=== PATIENT | female | born 1970 | race Caucasian/White ===

== ENCOUNTER 2020-07-16 21:30 | Emergency (ER) | payer OTHER ==
[~2020-07-16 21:30] MED LIST: BENTYL 10MG CAP10 MG PO; BETAPACE120 MG PO; CATAPRES0.3 MG PO; COREG 25MG TAB25 MG PO; ELAVIL 25 MG TA25 MG PO; FUROSEMIDE40 MG PO; K-DUR TAB 20 M20 MEQ PO; LASIX20 MG PO; LIORESAL TAB 1010 MG PO; NEURONTIN 400400 MG PO; NORCO 7.5-3251 EACH PO; OMNICEF 300 MG300 MG PO; PERCOCET 5/325 T1 EA PO; PHENERGAN 12.12.5 M1 PO; RESTORIL15 MG PO; TEGRETOL 200 M200 MG PO; VALTREX1000 MG PO; Voltaren Gel 1 % TOP; ZOFRAN4 MG PO
[2020-07-17] MEDS ORDERED: TEGRETOL200 MG PO (01:55)
[2020-12-25] MEDS ORDERED: LASIX40 MG PO (09:08)
== END 2020-07-17 02:22 | disposition home or self-care (01) ==
LOC: ER1 21:30
DX: G50.0 Trigeminal neuralgia (principal); I10 Essential (primary) hypertension; E11.9 Type 2 diabetes mellitus without complications; Z95.0 Presence of cardiac pacemaker; Z88.5 Allergy status to narcotic agent
CPT/HCPCS: 99283

== ENCOUNTER 2020-09-09 19:09 | Emergency (ER) | payer MEDICARE ==
[~2020-09-09 19:09] MED LIST changes: +TEGRETOL200 MG PO
[2020-09-09 20:38] LABS: HEMOGLOBIN 8.9 gm/dl (12.3-15.3); RED BLOOD COUNT 4.21 M/UL (4.00-5.10); WHITE BLOOD COUNT 9.7 K/UL (4.5-11.0)
[2020-09-09 21:12] LABS: BUN/CREATININE RATIO 10 (0-10)
[2020-09-09] MEDS ORDERED: Magic Mouthwash (21:25)
[2020-12-25] MEDS ORDERED: LASIX40 MG PO (09:08)
== END 2020-09-09 21:52 | disposition home or self-care (01) ==
LOC: ER1 19:09
PROVIDERS: Family Medicine
DX: J02.9 Acute pharyngitis, unspecified (principal); D50.8 Other iron deficiency anemias; I11.0 Hypertensive heart disease with heart failure; I50.9 Heart failure, unspecified; Z20.822 Contact with and (suspected) exposure to COVID-19; Z90.49 Acquired absence of other specified parts of digestive tract; Z95.0 Presence of cardiac pacemaker
CPT/HCPCS: 0240U; 36415; 80053; 81001; 82550; 82553; 83874; 84484; 85025; 87081; 87880; 99283

== ENCOUNTER 2020-12-24 12:32 | Observation (INO) | payer MEDICARE, OTHER ==
[~2020-12-24] VITALS: Ht 165.1 cm; Wt 163.1 kg
[~2020-12-24 12:32] MED LIST changes: +Magic Mouthwash
[2020-12-24 14:33] LABS: HEMOGLOBIN 7.1 gm/dl (12.3-15.3); RED BLOOD COUNT 3.27 M/UL (4.00-5.10); WHITE BLOOD COUNT 8.1 K/UL (4.5-11.0)
[2020-12-24 15:56] LABS: BUN/CREATININE RATIO 9 (0-10)
[2020-12-24] MEDS ORDERED: ZYRTEC10 MG PO (16:21)
[2020-12-24] MEDS ORDERED: CLONIDINE HCL0.3 MG PO (16:21)
[2020-12-24] MEDS ORDERED: SYNTHROID200 MCG PO (16:22)
[2020-12-24] MEDS ORDERED: PEPCID20 MG PO (16:22)
[2020-12-24] MEDS ORDERED: AMITRIPTYLINE H25 MG PO (16:22)
[2020-12-24] MEDS ORDERED: IRON325 M1 PO (16:24)
[2020-12-24] MEDS ORDERED: PROZAC40 MG PO (16:24)
[2020-12-24] MEDS ORDERED: COMBIVENT RESPIM4 GM INH (16:24)
[2020-12-24] MEDS ORDERED: SPIRIVA RESPIMAT4 GM INH (16:24)
[2020-12-24] MEDS ORDERED: FLONASE 0.05% N16 GM (16:25)
[2020-12-24] MEDS ORDERED: PREDNISONE5 MG PO (16:25)
[2020-12-24] MEDS ORDERED: SINGULAIR10 MG PO (16:25)
[2020-12-24] MEDS ORDERED: WIXELA 500-501 EACH INH (16:27)
[2020-12-24] MEDS ORDERED: HYDROXYZINE HCL50 MG PO ×2 (16:48)
[2020-12-24] MEDS ORDERED: LOPRESSOR100 MG PO (16:49)
[2020-12-24] MEDS ORDERED: DRISDOL1250 MCG PO (16:49)
[2020-12-24] MEDS ORDERED: ALDACTONE 25MG25 MG PO (16:50)
[2020-12-24] MEDS ORDERED: METFORMIN HCL500 MG PO (20:08)
[2020-12-25 03:05] LABS: HEMOGLOBIN 8.2 gm/dl (12.3-15.3); WHITE BLOOD COUNT 7.2 K/UL (4.5-11.0)
[2020-12-25 03:07] LABS: RED BLOOD COUNT 3.64 M/UL (4.00-5.10)
[2020-12-25 03:56] LABS: BUN/CREATININE RATIO 9 (0-10)
[2020-12-25] MEDS ORDERED: LASIX40 MG PO (09:08)
== END 2020-12-25 16:13 | disposition home or self-care (01) ==
LOC: ER1 12:32 → CDU 16:13 → M/S 16:13
PROVIDERS: Emergency Medicine; Physician Assistant Medical; ADMIT Internal Medicine
DX: I11.0 Hypertensive heart disease with heart failure (principal); I50.33 Acute on chronic diastolic (congestive) heart failure; D50.9 Iron deficiency anemia, unspecified; I25.10 Atherosclerotic heart disease of native coronary artery without angina pectoris; I25.5 Ischemic cardiomyopathy; I48.92 Unspecified atrial flutter; E11.9 Type 2 diabetes mellitus without complications; E78.5 Hyperlipidemia, unspecified; E03.9 Hypothyroidism, unspecified; G47.33 Obstructive sleep apnea (adult) (pediatric); G43.909 Migraine, unspecified, not intractable, without status migrainosus; F41.9 Anxiety disorder, unspecified; G89.4 Chronic pain syndrome; E66.01 Morbid (severe) obesity due to excess calories; Z68.44 Body mass index [BMI] 60.0-69.9, adult; Z20.822 Contact with and (suspected) exposure to COVID-19; Z79.84 Long term (current) use of oral hypoglycemic drugs; Z79.82 Long term (current) use of aspirin; Z79.899 Other long term (current) drug therapy; Z88.5 Allergy status to narcotic agent; Z88.2 Allergy status to sulfonamides; Z88.1 Allergy status to other antibiotic agents; Z88.8 Allergy status to other drugs, medicaments and biological substances; Z95.0 Presence of cardiac pacemaker; Z87.19 Personal history of other diseases of the digestive system
CPT/HCPCS: ECHO; 36415; 36430; 71045; 80048; 80053; 82550; 82553; 82607; 82728; 82746; 82962; 83036; 83540; 83550; 83735; 83874; 83880; 84439; 84443; 84484; 85025; 85027; 85610; 86850; 86900; 86901; 86920; 93005; 93306; 93970; 96374; 96375; 96376; 99285; G0378; J1756; J1940; J7050; P9016; U0002

== ENCOUNTER 2021-01-09 19:07 | Emergency (ER) | payer MEDICARE ==
[~2021-01-09 19:07] MED LIST changes: +ALDACTONE 25MG25 MG PO; +AMITRIPTYLINE H25 MG PO; +CLONIDINE HCL0.3 MG PO; +COMBIVENT RESPIM4 GM INH; +DRISDOL1250 MCG PO; +FLONASE 0.05% N16 GM; +HYDROXYZINE HCL50 MG PO; +IRON325 M1 PO; +LASIX40 MG PO; +LOPRESSOR100 MG PO; +METFORMIN HCL500 MG PO; +PEPCID20 MG PO; +PREDNISONE5 MG PO; +PROZAC40 MG PO; +SINGULAIR10 MG PO; +SPIRIVA RESPIMAT4 GM INH; +SYNTHROID200 MCG PO; +WIXELA 500-501 EACH INH; +ZYRTEC10 MG PO
[2021-01-09 20:07] LABS: HEMOGLOBIN 9.8 gm/dl (12.3-15.3); RED BLOOD COUNT 4.23 M/UL (4.00-5.10); WHITE BLOOD COUNT 10.8 K/UL (4.5-11.0)
[2021-01-09] MEDS ORDERED: PERCOCET 5-3251 EACH PO (23:13)
== END 2021-01-09 20:09 | disposition home or self-care (01) ==
LOC: ER1 19:07
PROVIDERS: Physician Assistant Medical
DX: S22.31XA Fracture of one rib, right side, initial encounter for closed fracture (principal); M25.511 Pain in right shoulder; E11.9 Type 2 diabetes mellitus without complications; I10 Essential (primary) hypertension; E03.9 Hypothyroidism, unspecified; Z88.5 Allergy status to narcotic agent; Z88.8 Allergy status to other drugs, medicaments and biological substances; Z95.0 Presence of cardiac pacemaker; W22.8XXA Striking against or struck by other objects, initial encounter; Y92.009 Unspecified place in unspecified non-institutional (private) residence as the place of occurrence of the external cause
CPT/HCPCS: 71111; 72040; 73030; 80053; 82550; 82553; 83874; 84484; 85025; 85379; 85610; 93005; 96374; 99285; Q9967

== ENCOUNTER 2021-04-14 16:18 | Emergency (ER) | payer MEDICARE ==
[~2021-04-14 16:18] MED LIST changes: +PERCOCET 5-3251 EACH PO
[2021-04-14 18:35] LABS: HEMOGLOBIN 11.1 gm/dl (12.3-15.3); RED BLOOD COUNT 4.44 M/UL (4.00-5.10); WHITE BLOOD COUNT 9.7 K/UL (4.5-11.0)
[2021-04-14 18:48] LABS: BUN/CREATININE RATIO 12 (0-10)
[2021-04-14] MEDS ORDERED: OMNICEF 300 MG300 MG PO (20:52)
== END 2021-04-14 21:05 | disposition home or self-care (01) ==
LOC: ER1 16:18
PROVIDERS: Emergency Medicine
DX: N39.0 Urinary tract infection, site not specified (principal); E11.9 Type 2 diabetes mellitus without complications; I10 Essential (primary) hypertension; Z90.49 Acquired absence of other specified parts of digestive tract
CPT/HCPCS: 80053; 81001; 82550; 82553; 83690; 83874; 84484; 85025; 87086; 96374; 96375; 99284; J1170; J2405; J7030; Q9967

== ENCOUNTER 2021-11-24 18:33 | Emergency (ER) | payer MEDICARE ==
[~2021-11-24 18:33] MED LIST changes: +ASPIRIN EC81 MG PO; +ATIVAN 1MG TABLE1 MG PO; +CYANOCOBAL1000 MCG/1 INJ; +HYGROTON TAB 2525 MG PO; +LISINOPRIL40 MG PO; +NITROGLYCERIN0.4 MG SL; +PAROXETINE HCL20 MG PO; +PROMETHAZINE HC25 M1 PO
[2021-11-24 19:29] LABS: HEMOGLOBIN 10.1 gm/dl (12.3-15.3); RED BLOOD COUNT 3.68 M/UL (4.00-5.10); WHITE BLOOD COUNT 8.2 K/UL (4.5-11.0)
[2021-11-24 19:53] LABS: BUN/CREATININE RATIO 17 (0-10)
== END 2021-11-24 19:47 | disposition left against medical advice (07) ==
LOC: ER1 18:33
PROVIDERS: Emergency Medicine
DX: M54.9 Dorsalgia, unspecified (principal); R55 Syncope and collapse; I10 Essential (primary) hypertension; E11.9 Type 2 diabetes mellitus without complications; J44.9 Chronic obstructive pulmonary disease, unspecified; W19.XXXA Unspecified fall, initial encounter
CPT/HCPCS: 71045; 80053; 82550; 82553; 84484; 85025; 93005; 99281

== ENCOUNTER 2021-12-21 11:58 | Inpatient (IN) | payer MEDICARE ==
[~2021-12-21] VITALS: Ht 165.1 cm; Wt 150.1 kg
[2021-12-21 13:33] LABS: HEMOGLOBIN 8.7 gm/dl (12.3-15.3); RED BLOOD COUNT 3.09 M/UL (4.00-5.10); WHITE BLOOD COUNT 6.8 K/UL (4.5-11.0)
[2021-12-21 13:57] LABS: BUN/CREATININE RATIO 8 (0-10)
[2021-12-22 05:08] LABS: HEMOGLOBIN 7.6 gm/dl (12.3-15.3); WHITE BLOOD COUNT 6.1 K/UL (4.5-11.0)
[2021-12-22 05:15] LABS: RED BLOOD COUNT 2.69 M/UL (4.00-5.10)
[2021-12-22 09:56] LABS: HEMOGLOBIN 8.2 gm/dl (12.3-15.3)
[2021-12-22] MEDS ORDERED: PAROXETINE HCL20 MG PO (10:25)
[2021-12-22] MEDS ORDERED: ONDANSETRON ODT4 MG PO (10:26)
[2021-12-22] MEDS ORDERED: LORAZEPAM2 MG PO (10:28)
[2021-12-22] MEDS ORDERED: FAMOTIDINE40 MG PO (10:28)
[2021-12-22] MEDS ORDERED: TIZANIDINE HCL4 MG PO (10:29)
[2021-12-22] MEDS ORDERED: CLONIDINE HCL0.3 MG PO (10:30)
[2021-12-22] MEDS ORDERED: HYDROXYZINE HCL50 MG PO (10:30)
[2021-12-23 05:25] LABS: HEMOGLOBIN 7.7 gm/dl (12.3-15.3); RED BLOOD COUNT 2.74 M/UL (4.00-5.10)
[2021-12-24 07:19] LABS: HEMOGLOBIN 8.3 gm/dl (12.3-15.3); WHITE BLOOD COUNT 4.5 K/UL (4.5-11.0)
[2021-12-24] MEDS ORDERED: KEPPRA1000 MG PO (17:09)
== END 2021-12-24 19:45 | disposition home or self-care (01) | DRG 101 ==
LOC: ER1 11:58 → CDU 18:49 → CCU 18:49
PROVIDERS: Emergency Medicine; Internal Medicine; ADMIT Internal Medicine Infectious Disease
PROC: B24BZZZ Ultrasonography of Heart with Aorta (ICD-10-PCS; 2021-12-22)
PROC: 4A00X4Z Measurement of Central Nervous Electrical Activity, External Approach (ICD-10-PCS; principal; 2021-12-23)
DX: G40.409 Other generalized epilepsy and epileptic syndromes, not intractable, without status epilepticus (principal); E66.2 Morbid (severe) obesity with alveolar hypoventilation; Z68.43 Body mass index [BMI] 50.0-59.9, adult; I50.30 Unspecified diastolic (congestive) heart failure; Z20.822 Contact with and (suspected) exposure to COVID-19; R55 Syncope and collapse; R00.0 Tachycardia, unspecified; F41.9 Anxiety disorder, unspecified; E86.0 Dehydration; D64.9 Anemia, unspecified; F32.A Depression, unspecified; G43.909 Migraine, unspecified, not intractable, without status migrainosus; I11.0 Hypertensive heart disease with heart failure; G89.4 Chronic pain syndrome; E03.9 Hypothyroidism, unspecified; S30.0XXA Contusion of lower back and pelvis, initial encounter; S00.83XA Contusion of other part of head, initial encounter; W19.XXXA Unspecified fall, initial encounter; I48.91 Unspecified atrial fibrillation; Z90.49 Acquired absence of other specified parts of digestive tract; Z95.0 Presence of cardiac pacemaker; Z82.49 Family history of ischemic heart disease and other diseases of the circulatory system; Z79.82 Long term (current) use of aspirin; Z88.6 Allergy status to analgesic agent; Z88.8 Allergy status to other drugs, medicaments and biological substances; Z79.899 Other long term (current) drug therapy
CPT/HCPCS: ECHO; 36415; 70450; 70486; 71045; 80048; 80053; 81001; 82272; 82550; 82553; 82607; 82728; 82746; 82962; 83540; 83550; 83605; 83690; 83735; 83880; 84439; 84443; 84484; 85014; 85018; 85025; 85379; 85610; 85730; 86850; 86900; 86901; 93005; 93306; 93970; 94660; 94760; 95816; 96372; 96374; 96375; 97116-GP-CQ; 97162; 99285; C9113; J0360; J0696; J1170; J1650; J1953; J2405; J2550; J2765; J3420; J3475; J7040; Q9967; U0002

== ENCOUNTER 2022-02-07 15:05 | Emergency (ER) | payer MEDICARE ==
[~2022-02-07 15:05] MED LIST changes: +FAMOTIDINE40 MG PO; +KEPPRA1000 MG PO; +LORAZEPAM2 MG PO; +ONDANSETRON ODT4 MG PO; +TIZANIDINE HCL4 MG PO
[2022-02-07] MEDS ORDERED: IBUPROFEN800 MG PO (20:09)
== END 2022-02-07 20:40 | disposition home or self-care (01) ==
LOC: ER1 15:05
DX: S20.212A Contusion of left front wall of thorax, initial encounter (principal); Z88.8 Allergy status to other drugs, medicaments and biological substances; W06.XXXA Fall from bed, initial encounter
CPT/HCPCS: 71045; 71100; 96374; 99283; J2405

== ENCOUNTER 2022-02-10 23:12 | Emergency (ER) | payer MEDICARE ==
[~2022-02-10 23:12] MED LIST changes: +IBUPROFEN800 MG PO
[2022-02-12] MEDS ORDERED: ZOFRAN 4 MG TAB4 MG PO ×2 (19:57→20:21)
[2022-02-12] MEDS ORDERED: PROTONIX 40 MG40 M1 PO ×2 (19:57→20:21)
== END 2022-02-11 01:15 | disposition left against medical advice (07) ==
LOC: ER1 23:12
DX: Z53.21 Procedure and treatment not carried out due to patient leaving prior to being seen by health care provider (principal)

== ENCOUNTER 2022-02-12 15:11 | Emergency (ER) | payer MEDICARE ==
[2022-02-12 17:21] LABS: HEMOGLOBIN 10.2 gm/dl (12.3-15.3); RED BLOOD COUNT 3.96 M/UL (4.00-5.10); WHITE BLOOD COUNT 8.6 K/UL (4.5-11.0)
[2022-02-12] MEDS ORDERED: PROTONIX 40 MG40 M1 PO ×2 (19:57→20:21)
[2022-02-12] MEDS ORDERED: ZOFRAN 4 MG TAB4 MG PO ×2 (19:57→20:21)
== END 2022-02-12 20:40 | disposition home or self-care (01) ==
LOC: ER1 15:11
PROVIDERS: Preventive Medicine Occupational Medicine
DX: K29.70 Gastritis, unspecified, without bleeding (principal)
CPT/HCPCS: 80053; 85025; 86140; 96374; 96375; 99284; C9113; J2405; Q9967

== ENCOUNTER 2022-02-21 21:28 | Inpatient (IN) | payer MEDICARE ==
[~2022-02-21] VITALS: Ht 165.1 cm; Wt 147.4 kg
[~2022-02-21 21:28] MED LIST changes: +PROTONIX 40 MG40 M1 PO; +SYNTHROID150 MCG PO; -SYNTHROID200 MCG PO; +ZOFRAN 4 MG TAB4 MG PO
[2022-02-21 22:56] LABS: RED BLOOD COUNT 3.91 M/UL (4.00-5.10); WHITE BLOOD COUNT 6.7 K/UL (4.5-11.0)
[2022-02-22] MEDS ORDERED: PROTONIX40 MG PO (13:37)
[2022-02-22] MEDS ORDERED: ONDANSETRON HCL4 MG PO (13:37)
[2022-02-22] MEDS ORDERED: MIRTAZAPINE15 MG PO (13:38)
[2022-02-22] MEDS ORDERED: LEVETIRACETAM1000 MG PO (13:39)
[2022-02-23 04:42] LABS: HEMOGLOBIN 8.5 gm/dl (12.3-15.3); WHITE BLOOD COUNT 5.3 K/UL (4.5-11.0)
[2022-02-23 04:43] LABS: RED BLOOD COUNT 3.32 M/UL (4.00-5.10)
[2022-02-24 04:46] LABS: HEMOGLOBIN 7.7 gm/dl (12.3-15.3); RED BLOOD COUNT 2.97 M/UL (4.00-5.10); WHITE BLOOD COUNT 4.1 K/UL (4.5-11.0)
[2022-02-25 02:32] LABS: HEMOGLOBIN 7.8 gm/dl (12.3-15.3); RED BLOOD COUNT 3.02 M/UL (4.00-5.10); WHITE BLOOD COUNT 5.1 K/UL (4.5-11.0)
[2022-02-25] MEDS ORDERED: CYANOCOBAL1000 MCG/1 INJ (12:32)
[2022-02-25] MEDS ORDERED: THERAGRAN M TAB1 EA PO (12:32)
[2022-02-25] MEDS ORDERED: XANAX0.5 MG PO (12:32)
[2022-02-25] MEDS ORDERED: CYANOCOBAL1000 MCG/1 SC (12:32)
== END 2022-02-25 14:58 | disposition home or self-care (01) | DRG 682 ==
LOC: ER1 21:28 → CDU 02-22 05:04 → PROG CARE 02-22 05:04
PROVIDERS: Family Medicine; Internal Medicine; Physician Assistant; ADMIT Internal Medicine
DX: N17.9 Acute kidney failure, unspecified (principal); R57.1 Hypovolemic shock; E87.2 Acidosis; F10.139 Alcohol abuse with withdrawal, unspecified; Z20.822 Contact with and (suspected) exposure to COVID-19; I50.32 Chronic diastolic (congestive) heart failure; I13.0 Hypertensive heart and chronic kidney disease with heart failure and stage 1 through stage 4 chronic kidney disease, or unspecified chronic kidney disease; Z68.43 Body mass index [BMI] 50.0-59.9, adult; N18.9 Chronic kidney disease, unspecified; E86.0 Dehydration; K76.0 Fatty (change of) liver, not elsewhere classified; K29.20 Alcoholic gastritis without bleeding; E88.09 Other disorders of plasma-protein metabolism, not elsewhere classified; K21.00 Gastro-esophageal reflux disease with esophagitis, without bleeding; G40.909 Epilepsy, unspecified, not intractable, without status epilepticus; E11.22 Type 2 diabetes mellitus with diabetic chronic kidney disease; D63.1 Anemia in chronic kidney disease; F41.9 Anxiety disorder, unspecified; F32.A Depression, unspecified; E03.9 Hypothyroidism, unspecified; I49.5 Sick sinus syndrome; G47.33 Obstructive sleep apnea (adult) (pediatric); E53.8 Deficiency of other specified B group vitamins; E66.01 Morbid (severe) obesity due to excess calories; E11.9 Type 2 diabetes mellitus without complications; Z91.14 Patient's other noncompliance with medication regimen; Z98.84 Bariatric surgery status; Z90.49 Acquired absence of other specified parts of digestive tract; Z98.891 History of uterine scar from previous surgery; Z95.0 Presence of cardiac pacemaker; Z88.6 Allergy status to analgesic agent; Z82.49 Family history of ischemic heart disease and other diseases of the circulatory system
CPT/HCPCS: 36415; 70450; 71045; 80048; 80053; 80202; 80307; 81001; 82550; 82553; 82962; 83605; 83735; 84484; 85025; 85027; 85652; 86140; 87040; 87086; 96372; 96374; 96375; 96376; 99285; G0480; J0692; J1644; J1953; J2060; J2405; J3370; J3411; J7070; U0002

== ENCOUNTER 2022-03-13 10:25 | Emergency (ER) | payer MEDICARE ==
[~2022-03-13 10:25] MED LIST changes: +CYANOCOBAL1000 MCG/1 SC; +LEVETIRACETAM1000 MG PO; +MIRTAZAPINE15 MG PO; +ONDANSETRON HCL4 MG PO; +PROTONIX40 MG PO; +THERAGRAN M TAB1 EA PO; +XANAX0.5 MG PO
== END 2022-03-13 11:50 | disposition left against medical advice (07) ==
LOC: ER1 10:25
DX: R11.2 Nausea with vomiting, unspecified (principal); I11.9 Hypertensive heart disease without heart failure; E11.9 Type 2 diabetes mellitus without complications
CPT/HCPCS: 96374; 96375; 99281; J1885; J2765; J3475